=== PATIENT | female | born 1965 | race African-American/Black ===

== ENCOUNTER 2017-09-30 23:59 | Emergency (ER) | payer MEDICAID ==
[~2017-09-30] VITALS: Ht 182.9 cm; Wt 129.3 kg
[~2017-09-30 23:59] MED LIST: ALBUPOW26; ALPR0.25; HYDR-1421
[2017-10-01 05:54] VITALS: BP 126/82
[2017-10-01] MEDS ORDERED: IPRATROPIUM BROM 0.5 MG/2.5ML INH SOL NEB ONE (07:15)
[2017-10-01] MEDS ORDERED: ALBUTEROL SULF 2.5 MG/0.5ML(0.5%) NEB SOLN NEB ONE (07:15)
[2017-10-01] MEDS ORDERED: methylPREDNISolone SOD SUCC 125 MG/2 ML VL IM ONE (07:15)
== END 2017-10-01 07:50 | disposition home or self-care (01) ==
LOC: ER 10-01 00:01
DX: J45.909 Unspecified asthma, uncomplicated (principal); J02.9 Acute pharyngitis, unspecified
CPT/HCPCS: 71020; 94640; 96372; 99284; J2930